=== PATIENT | female | born 2000 | race Caucasian/White ===

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

== ENCOUNTER 2020-11-09 17:50 | Emergency (ER) | payer OTHER ==
[~2020-11-09] VITALS: Ht 170.1 cm; Wt 54.4 kg
[~2020-11-09 17:50] MED LIST changes: +DOXYCYCLINE100 M3 PO
== END 2020-11-09 19:10 | disposition left against medical advice (07) ==
LOC: ED 17:50
DX: R51.9 Headache, unspecified (principal); R11.2 Nausea with vomiting, unspecified; Z53.21 Procedure and treatment not carried out due to patient leaving prior to being seen by health care provider

== ENCOUNTER → 2022-11-18 | Outpatient (CLI) | payer OTHER ==
[2022-11-18 10:57] LABS: BASO % 0.5 % (0.0-1.0); EOS # 0.3 10*3/uL (0.0-0.4); EOS % 3.4 % (1.0-4.0); HEMATOCRIT 36.7 % (37.0-47.0); LYMPH # 2.8 10*3/uL (1.3-4.4); LYMPH % 31.8 % (27.0-41.0); MEAN CELL VOLUME 100.8 fl (81.0-99.0); MEAN CORPUSCULAR HGB 34.1 pg (27.0-31.0); MEAN CORPUSCULAR HGB CONC 33.8 g/dl (33.0-37.0); MEAN PLATELET VOLUME 8.4 fl (9.6-12.3); MONO # 0.7 10*3/uL (0.1-1.0); MONO % 8.3 % (3.0-9.0); NEUT # 4.8 10*3/uL (2.3-7.9); NEUT % 55.3 % (47.0-73.0); PLATELET COUNT AUTOMATED 253 10*3/uL (130-400); RED BLOOD COUNT 3.64 10*6/uL (4.10-5.10); RED CELL DISTRI WIDTH 14.1 % (0-14.5); RETICULOCYTE % 2.46 % (0.50-2.50); WHITE BLOOD COUNT 8.6 10*3/uL (4.8-10.8)
[2022-11-18 11:53] LABS: ALKALINE PHOSPHATASE 113 U/L (46-116); BUN 13 mg/dl (9-23); CHLORIDE 107 mmol/L (98-107); CHOLESTEROL 192 mg/dL (<200); GAMMA GLUTAMYL TRANSPEPTIDASE 36 U/L (0-73); LDL CHOLESTEROL 116 mg/dL (9-159); POTASSIUM 3.7 mmol/L (3.4-5.1); SGPT/ALT 46 U/L (10-49); T3 UPTAKE 20.2 % (22.4-36.7); THYROID STIM HORMONE (HS) 1.293 uIU/ml (0.550-4.780); THYROXINE (T4) TOTAL 5.8 ug/dl (4.5-10.9); TOTAL PROTEIN 7.3 gm/dL (6.0-8.0); TRIGLYCERIDES 69 mg/dl (<150)
[2022-11-18 11:54] LABS: VITAMIN D, 25-HYDROXY 22.3 ng/mL (30-100)
[2022-11-19 05:06] LABS: HBSAG Negative (Negative); HEP B CORE AB, IGM Negative (Negative)
[2022-11-22 09:34] LABS: HEPATITIS C ANTIBODY Reactive (Non Reactive)
== END | disposition home or self-care (01) ==
LOC: LAB 10:25
PROVIDERS: ATTEND Family Medicine
DX: E78.5 Hyperlipidemia, unspecified (principal); E55.9 Vitamin D deficiency, unspecified; R79.89 Other specified abnormal findings of blood chemistry; R53.83 Other fatigue; R74.8 Abnormal levels of other serum enzymes

== ENCOUNTER → 2022-12-23 | Outpatient (CLI) | payer OTHER ==
[2022-12-23 11:36] LABS: INTERNATIONAL NORM RATIO 1.1 (2.0-3.5)
[2022-12-23 12:05] LABS: ALKALINE PHOSPHATASE 120 U/L (46-116); BUN 6 mg/dl (9-23); CHLORIDE 105 mmol/L (98-107); POTASSIUM 3.5 mmol/L (3.4-5.1); SGPT/ALT 21 U/L (10-49); TOTAL PROTEIN 7.6 gm/dL (6.0-8.0)
[2022-12-24 05:06] LABS: ALPHA-1-ANTITRYPSIN, SERUM 178 mg/dL (100-188); HEPATITIS B SURFACE AB Non Reactive (.)
[2022-12-24 14:08] LABS: ANTI-SMOOTH MUSCLE ANTIBODY 12 Units (0-19)
[2022-12-24 15:07] LABS: t-TRANSGLUTAMINASE (tTG) IGA <2 U/mL (0-3); t-TRANSGLUTAMINASE (tTG) IgG 2 U/mL (0-5)
[2023-01-03 10:25] LABS: HCV LOG10 2.724 (.); HEPATITIS C QNT 530 IU/mL (.)
== END | disposition home or self-care (01) ==
LOC: US 10:00 → LAB 10:31
PROVIDERS: ATTEND Nurse Practitioner Family
DX: R94.5 Abnormal results of liver function studies (principal)